=== PATIENT | female | born 1980 | race Caucasian/White ===

== ENCOUNTER 2016-10-24 11:23 | Outpatient (CLI) | payer MEDICARE, MEDICAID | END 2016-10-24 11:24 | disposition home or self-care (01) | DX: Z79.899 Other long term (current) drug therapy (principal) ==

== ENCOUNTER 2016-11-08 07:55 | Emergency (ER) | payer MEDICARE, MEDICAID | END 2016-11-08 09:05 | disposition home or self-care (01) | DX: R53.81 Other malaise (principal); R53.83 Other fatigue ==

== ENCOUNTER 2017-11-23 08:00 | Outpatient (CLI) | payer MEDICARE, MEDICAID ==
[2017-11-23 12:39] LABS: BASOPHILS % (AUTO) 0.9 %; HGB - HEMOGLOBIN 12.5 g/dL (12.0-16.0); LYMPHOCYTES # (AUTO) 1.7 10^3/uL (1.5-3.5); LYMPHOCYTES % (AUTO) 57.7 %; MEAN CORPUSCULAR HEMOGLOBIN 31.5 pg (27.0-31.0); MEAN PLATELET VOLUME 8.6 fL (7.9-10.8); MONOCYTES # (AUTO) 0.2 10^3/uL (0.0-1.0); MONOCYTES % (AUTO) 6.6 %; NEUTROPHILS % (AUTO) 34.8 %; PLT - PLATELET COUNT 167 10^3/uL (130-450); RED BLOOD COUNT 3.97 10^6/uL (4.20-5.40); RED CELL DISTRIBUTION WIDTH 12.5 % (12.0-15.0); WHITE BLOOD COUNT 2.9 x10^3/uL (4.8-10.8)
[2017-11-23 13:02] LABS: ALBUMIN 4.2 g/dL (3.2-5.5); ALBUMIN/GLOBULIN RATIO 1.7 (1.0-2.2); ALKALINE PHOSPHATASE 40 IU/L (42-121); ALT ALANINE AMINOTRANSFERASE 16 IU/L (10-60); AST ASPARTATE AMINOTRANSFERASE 22 IU/L (10-42); BILIRUBIN,TOTAL 0.6 mg/dL (0.2-1.0); BUN - BLOOD UREA NITROGEN 8 mg/dL (6-20); CARBON DIOXIDE - CO2 25 mmol/L (21-32); CHLORIDE 105 mmol/L (101-111); CHOL/HDL RATIO 2.4 (<4.4); CHOLESTEROL 172 mg/dL; CREATININE 0.5 mg/dL (0.4-1.0); GFR - MDRD 140 (>89); GLUCOSE 82 mg/dL (70-100); HDL CHOLESTEROL 72 mg/dL; SODIUM 136 mmol/L (135-145); TOTAL PROTEIN 6.7 g/dL (6.7-8.2)
[2017-11-23 13:08] LABS: THYROID STIMULATING HORMONE < 0.08 uIU/mL (0.34-5.60)
[2017-11-23 13:22] LABS: LDL CHOLESTEROL,DIRECT 84 mg/dL; LDLD/HDL RATIO 1.2 (<4.4)
[2017-11-23 14:07] LABS: FREE T4 (FREE THYROXINE) 0.95 ng/dL (0.58-1.64)
[2017-11-23 14:38] LABS: DIFFERENTIAL COMMENT MANUAL=AUTO DIFF; PLATELET ESTIMATE, MANUAL NORMAL (130-450,000) (NORMAL); PLATELET MORPHOLOGY NORMAL APPEARANCE (NORMAL); RBC MORPHOLOGY (MULTIPLE) NORMAL APPEARANCE (NORMAL)
== END 2017-11-23 08:01 | disposition home or self-care (01) ==
LOC: LAB.N 08:00
PROVIDERS: ATTEND Family Medicine
DX: R63.5 Abnormal weight gain (principal); F41.9 Anxiety disorder, unspecified; Z79.899 Other long term (current) drug therapy
CPT/HCPCS: 36415; 80053; 80061; 83721; 84439; 84443; 85025

== ENCOUNTER 2018-01-01 13:09 | Outpatient (CLI) | payer MEDICARE, MEDICAID ==
[2018-01-01 19:17] LABS: BASOPHILS % (AUTO) 0.4 %; LYMPHOCYTES # (AUTO) 2.2 10^3/uL (1.5-3.5); LYMPHOCYTES % (AUTO) 47.5 %; MEAN CORPUSCULAR HEMOGLOBIN 30.4 pg (27.0-31.0); MEAN CORPUSCULAR HGB CONC 33.6 g/dL (32.0-36.0); MEAN CORPUSCULAR VOLUME 90.4 fL (81.0-99.0); MEAN PLATELET VOLUME 8.6 fL (7.9-10.8); MONOCYTES # (AUTO) 0.3 10^3/uL (0.0-1.0); MONOCYTES % (AUTO) 6.4 %; NEUTROPHILS # (AUTO) 2.1 10^3/uL (1.5-6.6); NEUTROPHILS % (AUTO) 45.7 %; PLT - PLATELET COUNT 204 10^3/uL (130-450); RED BLOOD COUNT 3.94 10^6/uL (4.20-5.40); RED CELL DISTRIBUTION WIDTH 12.7 % (12.0-15.0); WHITE BLOOD COUNT 4.6 x10^3/uL (4.8-10.8)
[2018-01-01 19:44] LABS: THYROID STIMULATING HORMONE < 0.08 uIU/mL (0.34-5.60)
[2018-01-01 19:46] LABS: FREE T4 (FREE THYROXINE) 0.86 ng/dL (0.58-1.64)
== END 2018-01-01 13:10 ==
LOC: LAB.N 13:09
PROVIDERS: ATTEND Family Medicine
DX: D72.819 Decreased white blood cell count, unspecified (principal); R94.6 Abnormal results of thyroid function studies
CPT/HCPCS: 36415; 84439; 84443; 84481; 85025; 86800

== ENCOUNTER 2018-04-08 12:03 | Emergency (ER) | payer MEDICAID, MEDICARE ==
[2018-04-08 13:15] LABS: BASOPHILS % (AUTO) 0.3 %; HGB - HEMOGLOBIN 12.2 g/dL (12.0-16.0); LYMPHOCYTES # (AUTO) 1.7 10^3/uL (1.5-3.5); MEAN CORPUSCULAR HEMOGLOBIN 31.2 pg (27.0-31.0); MEAN CORPUSCULAR HGB CONC 34.9 g/dL (32.0-36.0); MEAN CORPUSCULAR VOLUME 89.7 fL (81.0-99.0); MEAN PLATELET VOLUME 7.5 fL (7.9-10.8); MONOCYTES # (AUTO) 0.2 10^3/uL (0.0-1.0); MONOCYTES % (AUTO) 7.2 %; NEUTROPHILS # (AUTO) 1.3 10^3/uL (1.5-6.6); NEUTROPHILS % (AUTO) 40.5 %; PLT - PLATELET COUNT 181 10^3/uL (130-450); RED BLOOD COUNT 3.91 10^6/uL (4.20-5.40); RED CELL DISTRIBUTION WIDTH 12.5 % (12.0-15.0); WHITE BLOOD COUNT 3.2 x10^3/uL (4.8-10.8)
[2018-04-08 13:38] LABS: ALBUMIN 3.9 g/dL (3.2-5.5); ALBUMIN/GLOBULIN RATIO 1.5 (1.0-2.2); ALKALINE PHOSPHATASE 43 IU/L (42-121); ALT ALANINE AMINOTRANSFERASE 15 IU/L (10-60); AST ASPARTATE AMINOTRANSFERASE 22 IU/L (10-42); BILIRUBIN,TOTAL 0.5 mg/dL (0.2-1.0); BUN - BLOOD UREA NITROGEN 6 mg/dL (6-20); CARBON DIOXIDE - CO2 28 mmol/L (21-32); CHLORIDE 106 mmol/L (101-111); CREATININE 0.6 mg/dL (0.4-1.0); GFR - MDRD 113 (>89); GLUCOSE 109 mg/dL (70-100); LIPASE 39 U/L (22-51); SALICYLATE < 6.0 mg/dL; SODIUM 138 mmol/L (135-145); TOTAL PROTEIN 6.5 g/dL (6.7-8.2)
[2018-04-08 13:42] LABS: MUDS CUTOFF CONCENTRATIONS CUTOFF CONC BELOW:
[2018-04-08 13:44] LABS: ACETAMINOPHEN < 10 ug/mL (10-30)
[2018-04-08 13:53] LABS: HCG UR QUAL NEGATIVE
[2018-04-08 13:58] LABS: AMPHETAMINE SCREEN,URINE NEGATIVE (NEGATIVE); BENZODIAZEPINES SCREEN, URINE NEGATIVE (NEGATIVE); COCAINE SCREEN URINE NEGATIVE (NEGATIVE); METHADONE SCREEN, URINE NEGATIVE (NEGATIVE); METHAMPHETAMINES SCREEN, URINE NEGATIVE (NEGATIVE); OPIATE SCREEN, URINE NEGATIVE (NEGATIVE); OXYCODONE SCREEN, URINE NEGATIVE (NEGATIVE); PROPOXYPHENE SCREEN, URINE NEGATIVE (NEGATIVE); TRICYCLIC ANTIDEPRESSANT,URINE NEGATIVE (NEGATIVE)
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
[2018-04-08 16:20] VITALS: BP 145/97
== END 2018-04-08 18:53 | disposition home or self-care (01) ==
LOC: ED 12:03
DX: F32.3 Major depressive disorder, single episode, severe with psychotic features (principal); R45.1 Restlessness and agitation; F43.10 Post-traumatic stress disorder, unspecified; R03.0 Elevated blood-pressure reading, without diagnosis of hypertension
CPT/HCPCS: 36415; 80053; 80306; 80307; 80320; 80329; 81025; 83690; 85025; 99283; 99284

== ENCOUNTER 2018-05-02 10:15 | Outpatient (CLI) | payer MEDICARE ==
[2018-05-02 17:00] LABS: MUDS CUTOFF CONCENTRATIONS CUTOFF CONC BELOW:
[2018-05-02 17:04] LABS: AMPHETAMINE SCREEN,URINE NEGATIVE (NEGATIVE); BENZODIAZEPINES SCREEN, URINE NEGATIVE (NEGATIVE); COCAINE SCREEN URINE NEGATIVE (NEGATIVE); METHADONE SCREEN, URINE NEGATIVE (NEGATIVE); METHAMPHETAMINES SCREEN, URINE NEGATIVE (NEGATIVE); OPIATE SCREEN, URINE NEGATIVE (NEGATIVE); OXYCODONE SCREEN, URINE NEGATIVE (NEGATIVE); PROPOXYPHENE SCREEN, URINE NEGATIVE (NEGATIVE); TRICYCLIC ANTIDEPRESSANT,URINE NEGATIVE (NEGATIVE)
== END 2018-05-02 10:16 | disposition home or self-care (01) ==
LOC: LAB.R 10:15
PROVIDERS: ATTEND Family Medicine
DX: R45.4 Irritability and anger (principal); R41.82 Altered mental status, unspecified
CPT/HCPCS: 80306

== ENCOUNTER 2019-03-18 12:47 | Outpatient (CLI) | payer MEDICARE | END 2019-03-18 12:48 | disposition home or self-care (01) | LOC: NS 12:47 | PROVIDERS: ATTEND Family Medicine | DX: Z71.3 Dietary counseling and surveillance (principal); R63.4 Abnormal weight loss; R63.5 Abnormal weight gain | CPT/HCPCS: 97802 ==

== ENCOUNTER 2019-04-17 15:01 | Outpatient (CLI) | payer MEDICARE ==
[2019-04-17 20:54] LABS: FREE T4 (FREE THYROXINE) 0.98 ng/dL (0.58-1.64)
== END 2019-04-17 23:59 | disposition home or self-care (01) ==
LOC: LAB.N 15:01
PROVIDERS: ATTEND Nurse Practitioner Gerontology
DX: R94.6 Abnormal results of thyroid function studies (principal)
CPT/HCPCS: 36415; 84439; 84443; 84481

== ENCOUNTER 2019-05-07 09:50 | Outpatient (CLI) | payer MEDICARE | END 2019-05-07 09:51 | disposition EMS.NT | LOC: EMS 09:50 | PROVIDERS: ATTEND Surgery | DX: Z03.89 Encounter for observation for other suspected diseases and conditions ruled out (principal) ==

== ENCOUNTER 2020-01-12 17:12 | Outpatient (CLI) | payer MEDICARE | END 2020-01-12 17:13 | disposition home or self-care (01) | LOC: COV 17:12 | PROVIDERS: ATTEND Family Medicine | DX: R50.9 Fever, unspecified (principal); R53.83 Other fatigue; J02.9 Acute pharyngitis, unspecified; R19.7 Diarrhea, unspecified | CPT/HCPCS: 81599 ==

== ENCOUNTER 2021-04-09 16:17 | Emergency (ER) | payer MEDICARE ==
[2021-04-09 16:45] VITALS: BP 112/76
--- NOTE | 2021-04-09 17:17 | ED Physician Documentation ---
History of Present Illness - Stated complaint Stated Complaint: LEG PX - Chief complaint Chief Complaint: Ext Problem - Additonal information Additional information: 40-year-old female presents emergency department for evaluation of acute right knee pain. She was unsure what she was doing but felt a pull in the knee. She is free of pain right now and has occasionally had this intermittently over the last few weeks. There is no swelling fevers or ecchymosis. No falls or trauma. She is interested in a referral to physical therapy. She is scheduled to establish with a primary care doctor on 26 May. Review of Systems Constitutional: reports: Reviewed and negative Ears: reports: Reviewed and negative Nose: reports: Reviewed and negative Cardiac: reports: Reviewed and negative Respiratory: reports: Reviewed and negative Musculoskeletal: reports: Joint pain (Right knee) PD PAST MEDICAL HISTORY - Past Medical History Cardiovascular: None Respiratory: None Endocrine/Autoimmune: None GI: None : None HEENT: None Psych: None Musculoskeletal: None Derm: None - Past Surgical History Past Surgical History: No Ortho: Other - Present Medications Home Medications: Ambulatory Orders Medication Instructions Recorded Confirmed Levothyroxine [Synthroid] 25 mcg PO DAILY 04/09/21 04/09/21 Ziprasidone [Geodon] 20 mg PO DAILY PM 04/09/21 04/09/21 - Allergies Allergies/Adverse Reactions: Allergies Allergy/AdvReac Type Severity Reaction Status Date / Time aspirin Allergy Mild Rash Verified 04/09/21 16:44 acetaminophen [From Tylenol] Allergy Rash Verified 04/09/21 16:44 - Social History Does the pt smoke?: No Smoking Status: Never smoker Does the pt drink ETOH?: No - Immunizations Immunizations are current?: No Immunizations: TDAP >10years/unknown PD ED PE EXPANDED - General General: Alert, No acute distress - Extremities Extremities: Right knee (Normal flexion and extension. Normal gait. No laxity with stress testing. No swelling ecchymosis or erythema.) Results - Vitals Vitals: Vital Signs - 24 hr 04/09/21 16:41 Temperature 36.7 C Heart Rate 70 Respiratory 16 Rate Blood Pressure 112/76 O2 Saturation 100 Oxygen O2 Source [With Activity] Room air O2 Source [Without Activity] Room air O2 Source Room air PD MEDICAL DECISION MAKING - ED course Complexity details: d/w patient ED course: Well-appearing 40-year-old female who presents emergency department with intermittent right knee pain free of pain right now and has an entirely unremarkable exam. She would like physical therapy for the intermittent knee pain. I encouraged her to follow-up with her primary care doctor to obtain that referral. Departure - Departure Disposition: Home, Self Care Clinical Impression: Right knee pain Qualifiers: Chronicity: acute Qualified Code(s): M25.561 - Pain in right knee Condition: Stable Record reviewed to determine appropriate education?: Yes Instructions: Strains Sprains Tx Comments: It is possible that the pain in your knee could have been a mild sprain that seems to have resolved. Pay attention to your knee if it becomes more painful red or swollen discussed with your primary care doctor if you would benefit from referral to physical therapy.
== END 2021-04-09 17:27 | disposition home or self-care (01) ==
LOC: ED 16:17
DX: M25.561 Pain in right knee (principal)
CPT/HCPCS: 99281; 99283

== ENCOUNTER 2021-05-26 15:47 | Outpatient (CLI) | payer MEDICARE ==
--- NOTE | 2021-05-26 17:11 | XRAY Report ---
PROCEDURE: Knee 4 View RT INDICATIONS: RIGHT KNEE PAIN TECHNIQUE: 4 views of the right knee(s) were acquired. COMPARISON: None. FINDINGS: Bones: No fractures or dislocations. No suspicious bony lesions. Trace narrowing of the medial fem oral tibial joint Soft tissues: Trace joint effusion. No suspicious soft tissue calcifications. IMPRESSION: Trace narrowing of the medial femoral tibial joint and trace joint effusion. Reviewed by: ED Madsen on 05/26/2021 5:09 PM PDT Approved by: Elpidio Head MD on 05/26/2021 5:09 PM PDT Station ID: [id number]
== END 2021-05-26 15:48 | disposition home or self-care (01) ==
LOC: DI.N 15:47
PROVIDERS: ATTEND Family Medicine
DX: M25.561 Pain in right knee (principal); M25.461 Effusion, right knee

== ENCOUNTER 2021-11-07 17:48 | Outpatient (CLI) | payer BC, MEDICARE | END 2021-11-07 23:59 | disposition home or self-care (01) | LOC: LAB.N 17:48 | PROVIDERS: ATTEND Physician Assistant | DX: Z20.822 Contact with and (suspected) exposure to COVID-19 (principal) ==

== ENCOUNTER 2022-02-03 08:00 | Outpatient (CLI) | payer BC | END 2022-02-03 23:59 | disposition home or self-care (01) | LOC: LAB.N 08:00 | PROVIDERS: ATTEND Physician Assistant Medical | DX: N30.00 Acute cystitis without hematuria (principal) | CPT/HCPCS: 87086 ==

== ENCOUNTER 2022-03-25 08:00 | Outpatient (CLI) | payer BC ==
[2022-03-25 18:58] LABS: BASOPHILS % (AUTO) 1.1 %; EOSINOPHILS % (AUTO) 0.5 %; HCT - HEMATOCRIT 34.8 % (37.0-47.0); HGB - HEMOGLOBIN 11.6 g/dL (12.0-16.0); LYMPHOCYTES # (AUTO) 1.7 10^3/uL (1.5-3.5); MEAN CORPUSCULAR HEMOGLOBIN 31.4 pg (27.0-31.0); MEAN CORPUSCULAR HGB CONC 33.3 g/dL (32.0-36.0); MEAN CORPUSCULAR VOLUME 94.1 fL (81.0-99.0); MEAN PLATELET VOLUME 9.7 fL (7.9-10.8); MONOCYTES # (AUTO) 0.2 10^3/uL (0.0-1.0); MONOCYTES % (AUTO) 6.3 %; NEUTROPHILS # (AUTO) 1.7 10^3/uL (1.5-6.6); NEUTROPHILS % (AUTO) 46.1 %; PLT - PLATELET COUNT 221 10^3/uL (130-450); RED CELL DISTRIBUTION WIDTH 12.6 % (12.0-15.0); WHITE BLOOD COUNT 3.7 x10^3/uL (4.8-10.8)
[2022-03-25 19:10] LABS: ALBUMIN 4.5 g/dL (3.2-5.5); ALBUMIN/GLOBULIN RATIO 2.1 (1.0-2.2); BILIRUBIN,TOTAL 0.5 mg/dL (0.2-1.0); CALCIUM 9.4 mg/dL (8.5-10.3); CREATININE 0.5 mg/dL (0.4-1.0); POTASSIUM 3.6 mmol/L (3.5-5.0); TOTAL PROTEIN 6.6 g/dL (6.7-8.2)
[2022-03-25 19:24] LABS: THYROID STIMULATING HORMONE 0.93 uIU/mL (0.34-5.60)
== END 2022-03-25 23:59 | disposition home or self-care (01) ==
LOC: LAB.N 08:00
PROVIDERS: ATTEND Nurse Practitioner
DX: R53.83 Other fatigue (principal)
CPT/HCPCS: 36415; 80053; 84443; 85025

== ENCOUNTER 2022-08-24 08:00 | Outpatient (CLI) | payer BC ==
[2022-08-24 17:46] LABS: BASOPHILS % (AUTO) 0.8 %; EOSINOPHILS % (AUTO) 0.6 %; HCT - HEMATOCRIT 39.5 % (37.0-47.0); HGB - HEMOGLOBIN 12.5 g/dL (12.0-16.0); LYMPHOCYTES # (AUTO) 1.4 10^3/uL (1.5-3.5); LYMPHOCYTES % (AUTO) 30.2 %; MEAN CORPUSCULAR HGB CONC 31.6 g/dL (32.0-36.0); MEAN PLATELET VOLUME 9.8 fL (7.9-10.8); MONOCYTES # (AUTO) 0.4 10^3/uL (0.0-1.0); MONOCYTES % (AUTO) 8.2 %; NEUTROPHILS # (AUTO) 2.9 10^3/uL (1.5-6.6); NEUTROPHILS % (AUTO) 60.2 %; PLT - PLATELET COUNT 191 10^3/uL (130-450); RED BLOOD COUNT 4.03 10^6/uL (4.20-5.40); RED CELL DISTRIBUTION WIDTH 12.3 % (12.0-15.0); WHITE BLOOD COUNT 4.7 x10^3/uL (4.8-10.8)
[2022-08-24 18:22] LABS: ALBUMIN 4.1 g/dL (3.2-5.5); ALBUMIN/GLOBULIN RATIO 1.5 (1.0-2.2); BILIRUBIN,TOTAL 0.7 mg/dL (0.2-1.0); CALCIUM 9.3 mg/dL (8.5-10.3); CREATININE 0.5 mg/dL (0.4-1.0); POTASSIUM 3.8 mmol/L (3.5-5.0); TOTAL PROTEIN 6.8 g/dL (6.7-8.2)
[2022-08-24 18:29] LABS: THYROID STIMULATING HORMONE 1.65 uIU/mL (0.34-5.60)
[2022-08-24 18:31] LABS: FREE T4 (FREE THYROXINE) 0.74 ng/dL (0.58-1.64)
[2022-08-24 18:41] LABS: FOLATE 10.47 ng/mL (5.90 - >24.8)
== END 2022-08-24 23:59 | disposition home or self-care (01) ==
LOC: LAB.N 08:00
PROVIDERS: ATTEND Family Medicine
DX: D64.9 Anemia, unspecified (principal); R94.6 Abnormal results of thyroid function studies; R63.0 Anorexia
CPT/HCPCS: 36415; 80053; 82607; 82746; 83540; 84134; 84439; 84443; 84466; 85025

== ENCOUNTER 2022-09-23 08:00 | Outpatient (CLI) | payer BC ==
[2022-09-23 18:34] LABS: BASOPHILS % (AUTO) 1.2 %; EOSINOPHILS % (AUTO) 0.6 %; HCT - HEMATOCRIT 34.8 % (37.0-47.0); HGB - HEMOGLOBIN 11.5 g/dL (12.0-16.0); LYMPHOCYTES # (AUTO) 1.5 10^3/uL (1.5-3.5); MEAN CORPUSCULAR HEMOGLOBIN 31.5 pg (27.0-31.0); MEAN CORPUSCULAR VOLUME 95.3 fL (81.0-99.0); MEAN PLATELET VOLUME 9.9 fL (7.9-10.8); MONOCYTES # (AUTO) 0.3 10^3/uL (0.0-1.0); MONOCYTES % (AUTO) 7.6 %; NEUTROPHILS # (AUTO) 1.6 10^3/uL (1.5-6.6); NEUTROPHILS % (AUTO) 45.3 %; PLT - PLATELET COUNT 188 10^3/uL (130-450); RED BLOOD COUNT 3.65 10^6/uL (4.20-5.40); RED CELL DISTRIBUTION WIDTH 12.6 % (12.0-15.0); WHITE BLOOD COUNT 3.4 x10^3/uL (4.8-10.8)
[2022-09-23 18:59] LABS: CALCIUM 9.1 mg/dL (8.5-10.3); CREATININE 0.5 mg/dL (0.4-1.0); POTASSIUM 3.6 mmol/L (3.5-5.0)
[2022-09-23 19:11] LABS: FERRITIN 7.9 ng/mL (11.0-306.8)
[2022-09-23 19:16] LABS: FOLATE 11.51 ng/mL (5.90 - >24.8)
== END 2022-09-23 23:59 | disposition home or self-care (01) ==
LOC: LAB.N 08:00
PROVIDERS: ATTEND Nurse Practitioner
DX: D64.9 Anemia, unspecified (principal)
CPT/HCPCS: 36415; 80048; 82728; 82746; 83540; 84466; 85025

== ENCOUNTER 2022-11-15 08:00 | Outpatient (CLI) | payer BC ==
[2022-11-15 21:24] LABS: BASOPHILS # (AUTO) 0.1 10^3/uL (0.0-0.1); BASOPHILS % (AUTO) 1.2 %; EOSINOPHILS % (AUTO) 0.7 %; HCT - HEMATOCRIT 34.9 % (37.0-47.0); HGB - HEMOGLOBIN 11.7 g/dL (12.0-16.0); LYMPHOCYTES % (AUTO) 46.1 %; MEAN CORPUSCULAR HEMOGLOBIN 31.5 pg (27.0-31.0); MEAN CORPUSCULAR HGB CONC 33.5 g/dL (32.0-36.0); MEAN CORPUSCULAR VOLUME 94.1 fL (81.0-99.0); MEAN PLATELET VOLUME 9.8 fL (7.9-10.8); MONOCYTES # (AUTO) 0.3 10^3/uL (0.0-1.0); MONOCYTES % (AUTO) 6.9 %; NEUTROPHILS # (AUTO) 1.9 10^3/uL (1.5-6.6); NEUTROPHILS % (AUTO) 45.1 %; PLT - PLATELET COUNT 207 10^3/uL (130-450); RED BLOOD COUNT 3.71 10^6/uL (4.20-5.40); RED CELL DISTRIBUTION WIDTH 12.5 % (12.0-15.0); WHITE BLOOD COUNT 4.2 x10^3/uL (4.8-10.8)
[2022-11-15 21:45] LABS: FERRITIN 12.3 ng/mL (11.0-306.8)
[2022-11-15 21:49] LABS: % IRON SATURATION 12 % (20-50); FOLATE 12.33 ng/mL (5.90 - >24.8); IRON 41 ug/dL (28-170); TOTAL IRON BINDING CAPACITY 343 ug/dL (250-450); TRANSFERRIN 245 mg/dL (192-382)
== END 2022-11-15 23:59 | disposition home or self-care (01) ==
LOC: LAB.N 08:00
PROVIDERS: ATTEND Registered Nurse
DX: D64.9 Anemia, unspecified (principal)
CPT/HCPCS: 36415; 82607; 82728; 82746; 83540; 84466; 85025

== ENCOUNTER 2022-12-26 16:30 | Outpatient (CLI) | payer BC ==
[2022-12-26 17:46] LABS: BASOPHILS # (AUTO) 0.1 10^3/uL (0.0-0.1); BASOPHILS % (AUTO) 1.1 %; EOSINOPHILS % (AUTO) 0.4 %; HCT - HEMATOCRIT 34.8 % (37.0-47.0); HGB - HEMOGLOBIN 11.8 g/dL (12.0-16.0); LYMPHOCYTES # (AUTO) 2.2 10^3/uL (1.5-3.5); LYMPHOCYTES % (AUTO) 46.2 %; MEAN CORPUSCULAR HEMOGLOBIN 31.7 pg (27.0-31.0); MEAN CORPUSCULAR HGB CONC 33.9 g/dL (32.0-36.0); MEAN CORPUSCULAR VOLUME 93.5 fL (81.0-99.0); MEAN PLATELET VOLUME 9.5 fL (7.9-10.8); MONOCYTES # (AUTO) 0.3 10^3/uL (0.0-1.0); MONOCYTES % (AUTO) 6.5 %; NEUTROPHILS # (AUTO) 2.2 10^3/uL (1.5-6.6); NEUTROPHILS % (AUTO) 45.6 %; PLT - PLATELET COUNT 209 10^3/uL (130-450); RED BLOOD COUNT 3.72 10^6/uL (4.20-5.40); RED CELL DISTRIBUTION WIDTH 12.1 % (12.0-15.0); WHITE BLOOD COUNT 4.8 x10^3/uL (4.8-10.8)
== END 2022-12-26 16:31 | disposition home or self-care (01) ==
LOC: LAB.N 16:30
PROVIDERS: ATTEND Physician Assistant Medical
DX: D64.9 Anemia, unspecified (principal)
CPT/HCPCS: 36415; 85025

== ENCOUNTER 2023-01-26 16:30 | Outpatient (CLI) | payer BC ==
[2023-01-26 20:44] LABS: BASOPHILS % (AUTO) 1.1 %; EOSINOPHILS % (AUTO) 0.3 %; HCT - HEMATOCRIT 36.8 % (37.0-47.0); HGB - HEMOGLOBIN 12.4 g/dL (12.0-16.0); LYMPHOCYTES # (AUTO) 1.7 10^3/uL (1.5-3.5); MEAN CORPUSCULAR HEMOGLOBIN 31.4 pg (27.0-31.0); MEAN CORPUSCULAR HGB CONC 33.7 g/dL (32.0-36.0); MEAN CORPUSCULAR VOLUME 93.2 fL (81.0-99.0); MEAN PLATELET VOLUME 9.5 fL (7.9-10.8); MONOCYTES # (AUTO) 0.4 10^3/uL (0.0-1.0); MONOCYTES % (AUTO) 9.9 %; NEUTROPHILS # (AUTO) 1.4 10^3/uL (1.5-6.6); NEUTROPHILS % (AUTO) 40.4 %; PLT - PLATELET COUNT 236 10^3/uL (130-450); RED BLOOD COUNT 3.95 10^6/uL (4.20-5.40); RED CELL DISTRIBUTION WIDTH 12.1 % (12.0-15.0); WHITE BLOOD COUNT 3.5 x10^3/uL (4.8-10.8)
[2023-01-26 21:01] LABS: ALBUMIN 4.4 g/dL (3.2-5.5); ALBUMIN/GLOBULIN RATIO 1.6 (1.0-2.2); BILIRUBIN,TOTAL 0.5 mg/dL (0.2-1.0); CALCIUM 9.3 mg/dL (8.5-10.3); CREATININE 0.5 mg/dL (0.4-1.0); POTASSIUM 3.7 mmol/L (3.5-5.0); TOTAL PROTEIN 7.1 g/dL (6.7-8.2)
[2023-01-26 21:18] LABS: THYROID STIMULATING HORMONE 0.91 uIU/mL (0.34-5.60)
[2023-01-26 21:23] LABS: % IRON SATURATION 11 % (20-50); IRON 42 ug/dL (28-170); TOTAL IRON BINDING CAPACITY 370 ug/dL (250-450); TRANSFERRIN 264 mg/dL (192-382)
[2023-01-26 21:25] LABS: FERRITIN 12.2 ng/mL (11.0-306.8)
== END 2023-01-26 16:45 | disposition home or self-care (01) ==
LOC: LAB.N 16:30
PROVIDERS: ATTEND Family Medicine
DX: D64.9 Anemia, unspecified (principal); R63.0 Anorexia; R53.83 Other fatigue; D72.819 Decreased white blood cell count, unspecified; R94.6 Abnormal results of thyroid function studies
CPT/HCPCS: 36415; 80053; 82607; 82728; 83540; 84443; 84466; 85025

== ENCOUNTER 2023-02-01 09:44 | Emergency (ER) | payer BC ==
[2023-02-01 09:54] VITALS: BP 125/90
--- NOTE | 2023-02-01 11:24 | ED Physician Documentation ---
History of Present Illness - Stated complaint Stated Complaint: ALLERGIC REACTION TO MEDICATION - Chief complaint Chief Complaint: General - History obtained from History obtained from: Patient - Additonal information Additional information: The patient comes to the emergency department chief complaint of feeling tired today. She did not feel tired yesterday, she states, and slept well last night. She states "I feel like I came down with a cold". However, the patient states she has no rhinorrhea, cough, sore throat, shortness of breath, fever, or any other symptoms besides feeling tired. She has not been nauseated or vomiting. No diarrhea. No dysuria. The patient states she drinks lots of water every day. The patient denies any other complaints at this time. She states she would like to know why she is tired. PD PAST MEDICAL HISTORY - Past Medical History Cardiovascular: None Respiratory: None Endocrine/Autoimmune: None GI: None : None HEENT: None Psych: None Musculoskeletal: None Derm: None - Past Surgical History Past Surgical History: No Ortho: Other - Present Medications Home Medications: Ambulatory Orders Medication Instructions Recorded Confirmed Levothyroxine [Synthroid] 25 mcg PO DAILY 04/09/21 04/09/21 Ziprasidone [Geodon] 20 mg PO DAILY PM 04/09/21 04/09/21 - Allergies Allergies/Adverse Reactions: Allergies Allergy/AdvReac Type Severity Reaction Status Date / Time aspirin Allergy Mild Rash Verified 02/01/23 09:51 acetaminophen [From Tylenol] Allergy Rash Verified 02/01/23 09:51 - Social History Does the pt smoke?: No Smoking Status: Never smoker Does the pt drink ETOH?: No Does the pt have substance abuse?: No - Immunizations Immunizations are current?: No Immunizations: TDAP >10years/unknown PD ED PE NORMAL - Vitals Vital signs reviewed: Yes - General General: Alert and oriented X 3, No acute distress, Well developed/nourished - HEENT HEENT: Atraumatic, PERRL, EOMI, Moist mucous membranes, Pharynx benign - Neck Neck: Supple, no meningeal sign - Cardiac Cardiac: RRR, No murmur - Respiratory Respiratory: No respiratory distress, Clear bilaterally - Abdomen Abdomen: Soft, Non tender, Non distended - Derm Derm: Normal color, Warm and dry, No rash - Extremities Extremities: No deformity - Neuro Neuro: Other (Grossly intact) - Psych Psych: Normal mood, Normal affect Results - Vitals Vitals: Vital Signs - 24 hr 02/01/23 09:47 Temperature 36.4 C L Heart Rate 67 Respiratory 16 Rate Blood Pressure 125/90 H O2 Saturation 100 Oxygen O2 Source [With Activity] Room air O2 Source [Without Activity] Room air O2 Source Room air PD Medical Decision Making - ED course Complexity details: considered differential, d/w patient ED course: I discussed with the patient that her symptoms are very recent in onset and very vague. The patient has completely normal vital signs and a normal physical exam. She has no other symptoms besides feeling tired and even that has only been since this morning. I do not know why she is tired and I have explained this to her. There are myriad possible explanations and nothing at this point is indicating a need for emergent work-up. I discussed with the patient that if she feels tired day after day with no other symptoms, she will need to establish with primary care and have basic blood work and a physical done. However, right now there is no emergent indication for this and the patient is stable for discharge home. Departure - Departure Disposition: 01 Home, Self Care Clinical Impression: Fatigue Qualifiers: Fatigue type: unspecified Qualified Code(s): R53.83 - Other fatigue Condition: Stable Instructions: Fatigue Manage Follow-Up: Maricruz Spaulding ARNP [Credentialed Staff Provider] - Comments: Your symptoms today include tiredness, but no other symptoms that you have been able to articulate. This is a very vague and nonspecific symptoms that could be caused by many many potential things. With normal vital signs, a normal physical exam, and no other symptoms, there is no indication for emergent testing in the emergency department. Most likely, your symptoms will blow over on their own. You may have picked up on the many viruses that are going around and you may develop some more specific symptoms over the next couple of days. It is also possible that you are just having an off day and that is why you feel tired. If you feel tiredness every day for weeks and you have no other specific symptoms, you will need to talk to your primary doctor about getting blood work done. However, there is no emergent indication for this today.
== END 2023-02-01 11:29 | disposition home or self-care (01) ==
LOC: ED 09:44
DX: R53.83 Other fatigue (principal)
CPT/HCPCS: 99281; 99282

== ENCOUNTER 2023-02-02 09:32 | Emergency (ER) | payer BC ==
[2023-02-02 09:44] VITALS: BP 127/79
--- NOTE | 2023-02-02 09:49 | ED Physician Documentation ---
PD HPI NVD - Stated complaint Stated Complaint: LIGHTHEADED/DIZZY - Chief complaint Chief Complaint: General - History obtained from History obtained from: Patient - History of Present Illness Timing - onset: How many days ago (She has been having some upper abdominal discomfort and more with eating. She had been prescribed famotidine but states it made her feel nauseated. She was told to use antacids instead. She is concerned about reactive conditions with her medications.) Timing - duration: Days Timing - details: Gradual onset, Waxing and waning Associated symptoms: Abdominal pain (upper abdomen), Dizzy (she states she feels lightheaded. No vertigo.). No: Chest pain Contributing factors: No: Sick contact, Bad food, Recent antibiotics, Alcohol use Improved by: No: Eating Worsened by: Eating Similar symptoms before: Diagnosis (presumed gastritis) Recently seen: Clinic, Emergency Dept Review of Systems Nose: denies: Rhinorrhea / runny nose, Congestion Throat: denies: Sore throat Respiratory: denies: Cough GI: reports: Abdominal Pain (intermittent upper cramping pains.), Nausea. denies: Vomiting, Diarrhea (loose stools without melena nor blood.) PD PAST MEDICAL HISTORY - Past Medical History Cardiovascular: None Respiratory: None Endocrine/Autoimmune: None GI: None : None HEENT: None Psych: Schizophrenia Musculoskeletal: None Derm: None - Past Surgical History Past Surgical History: No Ortho: Other - Present Medications Home Medications: Ambulatory Orders Medication Instructions Recorded Confirmed Levothyroxine [Synthroid] 25 mcg PO DAILY 04/09/21 04/09/21 Ziprasidone [Geodon] 20 mg PO DAILY PM 04/09/21 04/09/21 Pantoprazole Sodium 20 mg PO DAILY #30 tab 02/02/23 - Allergies Allergies/Adverse Reactions: Allergies Allergy/AdvReac Type Severity Reaction Status Date / Time aspirin Allergy Mild Rash Verified 02/02/23 09:42 acetaminophen [From Tylenol] Allergy Rash Verified 02/02/23 09:42 famotidine Allergy Edema Verified 02/02/23 09:42 - Social History Does the pt smoke?: No Smoking Status: Never smoker Does the pt drink ETOH?: No Does the pt have substance abuse?: No - Immunizations Immunizations are current?: No Immunizations: TDAP >10years/unknown PD ED PE NORMAL - Vitals Vital signs reviewed: Yes - General General: Alert and oriented X 3, No acute distress, Well developed/nourished - Abdomen Abdomen: Normal bowel sounds, Soft, Non tender, Non distended, No organomegaly - Derm Derm: Normal color, Warm and dry - Neuro Neuro: Alert and oriented X 3, No motor deficit, Normal speech - Psych Psych: No: Normal affect (flat) Results - Vitals Vitals: Vital Signs - 24 hr 02/02/23 09:38 Temperature 37.1 C Heart Rate 62 Respiratory 16 Rate Blood Pressure 127/79 O2 Saturation 100 Oxygen O2 Source [With Activity] Room air O2 Source [Without Activity] Room air O2 Source Room air PD Medical Decision Making - ED course Complexity details: considered differential (The patient states she is having some upper abdominal discomfort and nausea. She had had some loose stool but no melena. She had been seen for this and told to use antacids but she is concerned about interaction with her other medicines.), d/w patient, other (I did a medication interaction check on up-to-date which said not to use calcium or magnesium antacids with the thyroid. No interaction with her Geodon.) Departure - Departure Disposition: Home, Self Care Clinical Impression: Increased stomach acid Condition: Stable Record reviewed to determine appropriate education?: Yes Follow-Up: Claudia Garcia PA-C [Primary Care Provider] - Prescriptions: Pantoprazole Sodium 20 mg PO DAILY #30 tab Comments: I looked up the medication interactions for your medicines and the various antacids containing either magnesium or calcium (essentially all of them such as Tums, Mylanta, Maalox, Gaviscon) would interfere with the absorption and function of your thyroid medications. It would not interfere with the Geodon. As such I would suggest not using the antacids. If you wanted some acid reducing medications, other than the famotidine/H2 blockers and the antacids, there is the proton pump inhibitors such as pantoprazole and omeprazole. You could use these to help reduce stomach acids and do not have any interference with your medications. I would take them at night with your Geodon. Stay well-hydrated. [place] foods as tolerated. I would anticipate the mild diarrhea to continue tapering and be resolved within another day or 2. I sent a prescription for some pantoprazole to the [facility] pharmacy if you desired. Discharge Date/Time: 02/02/23 10:37
== END 2023-02-02 10:37 | disposition home or self-care (01) ==
LOC: ED 09:32
DX: R10.11 Right upper quadrant pain (principal); Z79.899 Other long term (current) drug therapy
CPT/HCPCS: 99282; 99283

== ENCOUNTER 2023-02-02 16:09 | Emergency (ER) | payer BC ==
--- NOTE | 2023-02-02 16:20 | ED Physician Documentation ---
History of Present Illness - Stated complaint Stated Complaint: LIGHT HEADED - Chief complaint Chief Complaint: Allergic Rx - History obtained from History obtained from: Patient - History of Present Illness Timing: Today, How many hours ago (1) Quality: The patient states she was at a store and while in it started to feel lightheaded with some tightness in her chest and felt short of breath. No itching or hives. She is concerned about having allergic reaction. She had not started any new medicines. No obvious chemical odors. Review of Systems Skin: denies: Rash Neurologic: denies: Focal weakness, Numbness, Near syncope (but having lightheaded feeling.) PD PAST MEDICAL HISTORY - Past Medical History Cardiovascular: None Respiratory: None Endocrine/Autoimmune: None GI: None : None HEENT: None Psych: None Musculoskeletal: None Derm: None - Past Surgical History Past Surgical History: No Ortho: Other - Present Medications Home Medications: Ambulatory Orders Medication Instructions Recorded Confirmed Levothyroxine [Synthroid] 25 mcg PO DAILY 04/09/21 04/09/21 Ziprasidone [Geodon] 20 mg PO DAILY PM 04/09/21 04/09/21 Pantoprazole Sodium 20 mg PO DAILY #30 tab 02/02/23 - Allergies Allergies/Adverse Reactions: Allergies Allergy/AdvReac Type Severity Reaction Status Date / Time aspirin Allergy Mild Rash Verified 02/02/23 16:18 acetaminophen [From Tylenol] Allergy Rash Verified 02/02/23 16:18 famotidine Allergy Edema Verified 02/02/23 16:18 - Social History Does the pt smoke?: No Smoking Status: Never smoker Does the pt drink ETOH?: No Does the pt have substance abuse?: No - Immunizations Immunizations are current?: No Immunizations: TDAP >10years/unknown PD ED PE NORMAL - Vitals Vital signs reviewed: Yes - General General: Alert and oriented X 3, No acute distress, Well developed/nourished - HEENT HEENT: Pharynx benign - Respiratory Respiratory: No respiratory distress, Clear bilaterally - Derm Derm: Normal color, Warm and dry, No rash Results - Vitals Vitals: Vital Signs - 24 hr 02/02/23 16:12 Temperature 36.9 C Heart Rate 70 Respiratory 16 Rate Blood Pressure 134/89 H O2 Saturation 100 Oxygen O2 Source [With Activity] Room air O2 Source [Without Activity] Room air O2 Source Room air PD Medical Decision Making - ED course Complexity details: considered differential (The patient was having a feeling of lightheadedness, dyspnea, shortness of breath. No wheezing hives or itching. She is concerned about allergic reaction. No obvious trigger.), d/w patient ED course: The patient does have a history of anxiety and also some potential affective disorder. She typically takes thyroid and Geodon. She is very nervous and cautious about changes in her food routines, medications, adding any new medicines etc. She appears well without any swelling, trouble breathing or swallowing, rash, itching. There may have been an environmental trigger that caused some symptoms such as a chemical smell or odor. However I think there is a reasonable psychological overlay with stress reaction. She appears well at this time without any distress and states she is feeling better. She is reluctant to take medications I would not want to give her antihistamines or such and it does not necessarily sound histamine mediated. We will discharge her with instructions to stay well-hydrated and return if needed. She does seem to have an anxiety component and that is likely the main overlay of her symptoms. Departure - Departure Disposition: 01 Home, Self Care Clinical Impression: Light-headed feeling Condition: Stable Record reviewed to determine appropriate education?: Yes Follow-Up: Claudia Garcia PA-C [Primary Care Provider] - Comments: Its not clear the cause of your symptoms. Without having started any new medications etc. its unlikely to be medication toxicity or side effect. There may have been an environmental trigger at the store that cause some lightheadedness. Could consider the idea of being under hydrated and lightheaded related to your recent gastritis. Be sure to take lots of fluids through the day. Continue usual medicines. You could start the pantoprazole prescribed earlier today to help reduce some of the stomach acids. You could go with bland food and acid absorbing foods such as crackers and such through the day instead if starting new medicine is worrisome to you. You look well at this time without any trouble breathing or signs of allergic reaction per se. I believe you are safe for discharge Discharge Date/Time: 02/02/23 16:51
[2023-02-02 16:21] VITALS: BP 134/89
== END 2023-02-02 16:51 | disposition home or self-care (01) ==
LOC: ED 16:09
DX: R42 Dizziness and giddiness (principal)

== ENCOUNTER 2023-02-02 21:47 | Emergency (ER) | payer BC ==
[2023-02-02 22:05] VITALS: BP 149/102
== END 2023-02-02 22:00 | disposition left against medical advice (07) ==
LOC: ED 21:47
DX: Z53.21 Procedure and treatment not carried out due to patient leaving prior to being seen by health care provider (principal)

== ENCOUNTER 2023-02-10 08:00 | Outpatient (CLI) | payer BC ==
[2023-02-10 18:41] LABS: BASOPHILS % (AUTO) 0.8 %; EOSINOPHILS % (AUTO) 0.3 %; HCT - HEMATOCRIT 35.9 % (37.0-47.0); HGB - HEMOGLOBIN 12.4 g/dL (12.0-16.0); LYMPHOCYTES # (AUTO) 1.2 10^3/uL (1.5-3.5); LYMPHOCYTES % (AUTO) 32.4 %; MEAN CORPUSCULAR HGB CONC 34.5 g/dL (32.0-36.0); MEAN CORPUSCULAR VOLUME 92.5 fL (81.0-99.0); MEAN PLATELET VOLUME 9.3 fL (7.9-10.8); MONOCYTES # (AUTO) 0.3 10^3/uL (0.0-1.0); MONOCYTES % (AUTO) 9.3 %; NEUTROPHILS # (AUTO) 2.1 10^3/uL (1.5-6.6); NEUTROPHILS % (AUTO) 56.9 %; PLT - PLATELET COUNT 235 10^3/uL (130-450); RED BLOOD COUNT 3.88 10^6/uL (4.20-5.40); RED CELL DISTRIBUTION WIDTH 12.3 % (12.0-15.0); WHITE BLOOD COUNT 3.6 x10^3/uL (4.8-10.8)
== END 2023-02-10 23:59 | disposition home or self-care (01) ==
LOC: LAB.N 08:00
PROVIDERS: ATTEND Family Medicine
DX: D64.9 Anemia, unspecified (principal)
CPT/HCPCS: 36415; 85025

== ENCOUNTER 2023-02-11 12:01 | Emergency (ER) | payer BC ==
[2023-02-11 12:18] VITALS: BP 134/79
--- NOTE | 2023-02-11 14:41 | ED Physician Documentation ---
History of Present Illness - Stated complaint Stated Complaint: ZARAGOZA - Chief complaint Chief Complaint: General - History obtained from History obtained from: Patient - History of Present Illness Timing: Today - Additonal information Additional information: 42-year-old Susan Patino has developed a headache beginning last night that was on the top of her head and throbbing this resolved and the patient felt that if this recurred she would go to the hospital. She had recurrence of the symptoms this morning developed some nausea her symptoms are now resolved. She does not typically get headaches. She has no other specific symptoms. She does not feel like she has been recently ill. Review of Systems Constitutional: denies: Fever Eyes: denies: Decreased vision Ears: denies: Loss of hearing, Ear pain Nose: denies: Rhinorrhea / runny nose, Reviewed and negative Throat: denies: Sore throat Cardiac: denies: Chest pain / pressure Respiratory: denies: Dyspnea, Cough GI: reports: Nausea. denies: Abdominal Pain, Vomiting, Constipation, Diarrhea : reports: Frequency. denies: Dysuria Skin: denies: Rash Musculoskeletal: denies: Neck pain, Back pain, Extremity pain PD PAST MEDICAL HISTORY - Past Medical History Cardiovascular: None Respiratory: None Endocrine/Autoimmune: None GI: None : None HEENT: None Psych: None Musculoskeletal: None Derm: None - Past Surgical History Past Surgical History: No Ortho: Other - Present Medications Home Medications: Ambulatory Orders Medication Instructions Recorded Confirmed Levothyroxine [Synthroid] 25 mcg PO DAILY 04/09/21 04/09/21 Ziprasidone [Geodon] 20 mg PO DAILY PM 04/09/21 04/09/21 Pantoprazole Sodium 20 mg PO DAILY #30 tab 02/02/23 - Allergies Allergies/Adverse Reactions: Allergies Allergy/AdvReac Type Severity Reaction Status Date / Time aspirin Allergy Mild Rash Verified 02/11/23 12:15 acetaminophen [From Tylenol] Allergy Rash Verified 02/11/23 12:15 famotidine Allergy Edema Verified 02/11/23 12:15 - Social History Does the pt smoke?: No Smoking Status: Never smoker Does the pt drink ETOH?: No Does the pt have substance abuse?: No - Immunizations Immunizations are current?: No Immunizations: TDAP >10years/unknown PD ED PE NORMAL - Vitals Vital signs reviewed: Yes (hypertensive) - General General: Alert and oriented X 3, No acute distress, Well developed/nourished - HEENT HEENT: Atraumatic, PERRL, EOMI - Neck Neck: Supple, no meningeal sign, No bony TTP - Cardiac Cardiac: RRR, No murmur - Respiratory Respiratory: No respiratory distress, Clear bilaterally - Abdomen Abdomen: Soft, Non tender - Back Back: No CVA TTP, No spinal TTP - Derm Derm: Normal color, Warm and dry, No rash - Extremities Extremities: No deformity, No edema - Neuro Neuro: Alert and oriented X 3, advance agent 2-12 intact, No motor deficit, No sensory de ficit, Normal speech Eye Opening: Spontaneous Motor: Obeys Commands Verbal: Oriented GCS Score: 15 - Psych Psych: Normal mood, Other (Affect is blunted) Results - Vitals Vitals: Vital Signs - 24 hr 02/11/23 12:10 Temperature 36.2 C L Heart Rate 66 Respiratory 16 Rate Blood Pressure 134/79 H O2 Saturation 100 Oxygen O2 Source [] Room air O2 Source [] Room air O2 Source Room air - Labs Labs: Laboratory Tests 02/11/23 15:00 Urine Color YELLOW Urine Clarity CLEAR Urine pH 6.5 Ur Specific [place] <=1.005 Urine Protein NEGATIVE Urine Glucose (UA) NEGATIVE Urine Ketones NEGATIVE Urine Occult Blood TRACE-INTA Urine Nitrite NEGATIVE Urine Bilirubin NEGATIVE Urine Urobilinogen 0.2 (NORMAL) Ur Leukocyte Esterase NEGATIVE Ur Microscopic Review NOT INDICATED Urine Culture Comments NOT INDICATED Urine HCG, Qual NEGATIVE Procedures - IVC sono (time) 1438 Bedside IVC sono: IVC measures (cm) (1.66), Euvolemia PD Medical Decision Making - ED course Complexity details: reviewed old records, reviewed results, re-evaluated patient, considered differential, d/w patient Reviewed Lab Results: We reviewed a urinalysis and test on this patient complaining of urinary frequency and found a urine specific gravity 1.005 otherwise negative and a negative urine test. My interpretation of this is no evidence of urinary tract infection and no evidence of dehydration. ED course: 42-year-old female with complaints of intermittent headache has no symptoms now I did evaluate the patient for dehydration with interrogation of the inferior vena cava with POCUS and found her to be normally hydrated. This was supported by laboratory values of her urine showing a low urine specific gravity Departure - Departure Disposition: 01 Home, Self Care Clinical Impression: Cephalalgia Qualifiers: Headache type: unspecified Headache chronicity pattern: episodic headache Intractability: not intractable Qualified Code(s): R51.9 - Headache, unspecified Condition: Stable Instructions: ED Cephalgia Unspecified Follow-Up: [facility] [Provider Group] Discharge Date/Time: 02/11/23 16:42
[2023-02-11 15:14] LABS: BILIRUBIN,URINE NEGATIVE (NEGATIVE); GLUCOSE, URINE (UA) NEGATIVE (NEGATIVE); KETONES,URINE (UA) NEGATIVE (NEGATIVE); LEUKOCYTE ESTERASE, URINE NEGATIVE (NEGATIVE); NITRITE,URINE NEGATIVE (NEGATIVE); OCCULT BLOOD,URINE TRACE-INTA (NEGATIVE); PH,URINE 6.5 PH (5.0-7.5); PROTEIN,URINE NEGATIVE (NEGATIVE); UROBILINOGEN,URINE 0.2 (NORMAL) E.U./dL (NORMAL)
[2023-02-11 15:20] LABS: CLARITY,URINE CLEAR (CLEAR); HCG UR QUAL NEGATIVE
== END 2023-02-11 16:42 | disposition home or self-care (01) ==
LOC: ED 12:01
DX: R51.9 Headache, unspecified (principal); D64.9 Anemia, unspecified
CPT/HCPCS: 36415; 81001; 81003; 81025; 85025; 87086; 99283

== ENCOUNTER 2023-02-22 14:00 | Emergency (ER) | payer BC ==
[2023-02-22 14:14] VITALS: BP 113/76
[2023-02-22 14:39] LABS: BASOPHILS % (AUTO) 1.1 %; EOSINOPHILS % (AUTO) 0.3 %; HCT - HEMATOCRIT 38.1 % (37.0-47.0); HGB - HEMOGLOBIN 12.9 g/dL (12.0-16.0); LYMPHOCYTES # (AUTO) 1.3 10^3/uL (1.5-3.5); LYMPHOCYTES % (AUTO) 33.8 %; MEAN CORPUSCULAR HEMOGLOBIN 31.8 pg (27.0-31.0); MEAN CORPUSCULAR HGB CONC 33.9 g/dL (32.0-36.0); MEAN CORPUSCULAR VOLUME 93.8 fL (81.0-99.0); MEAN PLATELET VOLUME 8.8 fL (7.9-10.8); MONOCYTES # (AUTO) 0.2 10^3/uL (0.0-1.0); MONOCYTES % (AUTO) 6.4 %; NEUTROPHILS # (AUTO) 2.2 10^3/uL (1.5-6.6); NEUTROPHILS % (AUTO) 58.1 %; PLT - PLATELET COUNT 223 10^3/uL (130-450); RED BLOOD COUNT 4.06 10^6/uL (4.20-5.40); RED CELL DISTRIBUTION WIDTH 12.1 % (12.0-15.0); WHITE BLOOD COUNT 3.8 x10^3/uL (4.8-10.8)
[2023-02-22 14:54] LABS: ALBUMIN 4.4 g/dL (3.2-5.5); ALBUMIN/GLOBULIN RATIO 1.7 (1.0-2.2); BILIRUBIN,TOTAL 0.5 mg/dL (0.2-1.0); CALCIUM 9.4 mg/dL (8.5-10.3); CREATININE 0.5 mg/dL (0.4-1.0); POTASSIUM 3.6 mmol/L (3.5-5.0)
[2023-02-22] MEDS ORDERED: ONDANSETRON ODT 4 MG TABLET TL STA (14:57)
--- NOTE | 2023-02-22 15:01 | ED Physician Documentation ---
History of Present Illness - Stated complaint Stated Complaint: DIZZY/FEELING UNWELL - Chief complaint Chief Complaint: General - Additonal information Additional information: 42-year-old female presents emergency department stating that she wants testing for "what ever she is coming down with." States this morning she was dizzy and nauseated. Drink some water and did not feel better. She feels lightheaded. She has had diarrhea. Denies abdominal pain chest pain fevers or cough. She does appear exceedingly anxious. This is her third ED visit over the last several weeks for headache fatigue and dizziness. She does have a known thyroid disorder with recent normal TSH Review of Systems Constitutional: denies: Fever, Chills Eyes: reports: Reviewed and negative Throat: reports: Reviewed and negative Cardiac: reports: Reviewed and negative Respiratory: reports: Reviewed and negative GI: reports: Abdominal Pain, Nausea, Diarrhea : reports: Reviewed and negative Skin: reports: Reviewed and negative PD PAST MEDICAL HISTORY - Past Medical History Cardiovascular: None Respiratory: None Endocrine/Autoimmune: None GI: None : None HEENT: None Psych: None Musculoskeletal: None Derm: None - Past Surgical History Past Surgical History: No Ortho: Other - Present Medications Home Medications: Ambulatory Orders Medication Instructions Recorded Confirmed Levothyroxine [Synthroid] 25 mcg PO DAILY 04/09/21 04/09/21 Ziprasidone [Geodon] 20 mg PO DAILY PM 04/09/21 04/09/21 Pantoprazole Sodium 20 mg PO DAILY #30 tab 02/02/23 Ondansetron Odt [Zofran] 4 mg TL Q6H PRN #10 tablet 02/22/23 - Allergies Allergies/Adverse Reactions: Allergies Allergy/AdvReac Type Severity Reaction Status Date / Time aspirin Allergy Mild Rash Verified 02/22/23 14:02 acetaminophen [From Tylenol] Allergy Rash Verified 02/22/23 14:02 famotidine Allergy Edema Verified 02/22/23 14:02 - Social History Does the pt smoke?: No Smoking Status: Never smoker Does the pt drink ETOH?: No Does the pt have substance abuse?: No - Immunizations Immunizations are current?: No Immunizations: TDAP >10years/unknown PD ED PE NORMAL - General General: Alert and oriented X 3, No acute distress, Well developed/nourished - HEENT HEENT: Atraumatic, Moist mucous membranes, Pharynx benign - Neck Neck: Supple, no meningeal sign - Cardiac Cardiac: RRR, No murmur, No gallop - Respiratory Respiratory: No respiratory distress, Clear bilaterally - Abdomen Abdomen: Normal bowel sounds, Soft, Non tender, Non distended - Back Back: No CVA TTP - Derm Derm: Normal color, Warm and dry, No rash - Extremities Extremities: No deformity - Neuro Neuro: Alert and oriented X 3, biophysics professor 2-12 intact Eye Opening: Spontaneous Motor: Obeys Commands Verbal: Oriented GCS Score: 15 Results - Vitals Vitals: Vital Signs - 24 hr 02/22/23 14:02 Temperature 36.5 C Heart Rate 78 Respiratory 14 Rate Blood Pressure 113/76 O2 Saturation 100 Oxygen O2 Source [With Activity] Room air O2 Source [Without Activity] Room air O2 Source Room air - Labs Labs: Laboratory Tests 02/22/23 02/22/23 02/22/23 14:35 14:35 15:10 WBC 3.8 L RBC 4.06 L Hgb 12.9 Hct 38.1 MCV 93.8 MCH 31.8 H MCHC 33.9 RDW 12.1 Plt Count 223 MPV 8.8 Neut # (Auto) 2.2 Lymph # (Auto) 1.3 L [place] # (Auto) 0.2 Eos # (Auto) 0.0 Baso # (Auto) 0.0 Absolute Nucleated RBC 0.00 Nucleated RBC % 0.0 Sodium 135 Potassium 3.6 Chloride 101 Carbon Dioxide 27 Anion Gap 7.0 BUN 6 Creatinine 0.5 Estimated GFR (MDRD) 136 Glucose 121 H Calcium 9.4 Total Bilirubin 0.5 AST 22 ALT 17 Alkaline Phosphatase 35 L Total Protein 7.0 Albumin 4.4 Globulin 2.6 Albumin/Globulin Ratio 1.7 Lipase 46 Urine Color YELLOW Urine Clarity CLEAR Urine pH 6.5 Ur Specific [place] <=1.005 Urine Protein NEGATIVE Urine Glucose (UA) NEGATIVE Urine Ketones NEGATIVE Urine Occult Blood TRACE-INTA Urine Nitrite NEGATIVE Urine Bilirubin NEGATIVE Urine Urobilinogen 0.2 (NORMAL) Ur Leukocyte Esterase NEGATIVE Ur Microscopic Review NOT INDICATED Urine Culture Comments NOT INDICATED Urine HCG, Qual NEGATIVE Nasal Adenovirus (PCR) Nasal B. parapertussis DNA (PCR) Nasal Coronavir 229E PCR Nasal Coronavir HKU1 PCR Nasal Coronavir NL63 PCR Nasal Coronavir OC43 PCR Nasal Enterovir/Rhinovir PCR Nasal Influenza B PCR Nasal Influenza A PCR Nasal Parainfluen 1 PCR Nasal Parainfluen 2 PCR Nasal Parainfluen 3 PCR Nasal Parainfluen 4 PCR Nasal RSV (PCR) Nasal B.pertussis DNA PCR Nasal C.pneumoniae (PCR) Anupam Human Metapneumo PCR Nasal M.pneumoniae (PCR) Nasal SARS-CoV-2 (PCR) 02/22/23 15:10 WBC RBC Hgb Hct MCV MCH MCHC RDW Plt Count MPV Neut # (Auto) Lymph # (Auto) [place] # (Auto) Eos # (Auto) Baso # (Auto) Absolute Nucleated RBC Nucleated RBC % Sodium Potassium Chloride Carbon Dioxide Anion Gap BUN Creatinine Estimated GFR (MDRD) Glucose Calcium Total Bilirubin AST ALT Alkaline Phosphatase Total Protein Albumin Globulin Albumin/Globulin Ratio Lipase Urine Color Urine Clarity Urine pH Ur Specific [place] Urine Protein Urine Glucose (UA) Urine Ketones Urine Occult Blood Urine Nitrite Urine Bilirubin Urine Urobilinogen Ur Leukocyte Esterase Ur Microscopic Review Urine Culture Comments Urine HCG, Qual Nasal Adenovirus (PCR) NOT DETECTED Nasal B. parapertussis DNA (PCR) NOT DETECTED Nasal Coronavir 229E PCR NOT DETECTED Nasal Coronavir HKU1 PCR NOT DETECTED Nasal Coronavir NL63 PCR NOT DETECTED Nasal Coronavir OC43 PCR NOT DETECTED Nasal Enterovir/Rhinovir PCR NOT DETECTED Nasal Influenza B PCR NOT DETECTED Nasal Influenza A PCR NOT DETECTED Nasal Parainfluen 1 PCR NOT DETECTED Nasal Parainfluen 2 PCR NOT DETECTED Nasal Parainfluen 3 PCR NOT DETECTED Nasal Parainfluen 4 PCR NOT DETECTED Nasal RSV (PCR) NOT DETECTED Nasal B.pertussis DNA PCR NOT DETECTED Nasal C.pneumoniae (PCR) NOT DETECTED Anupam Human Metapneumo PCR NOT DETECTED Nasal M.pneumoniae (PCR) NOT DETECTED Nasal SARS-CoV-2 (PCR) NOT DETECTED PD Medical Decision Making - ED course Complexity details: reviewed results, re-evaluated patient, d/w patient ED course: 42-year-old female presents emergency department for evaluation of nausea and dizziness that began this morning. She did have some diarrhea. Reported to me that she wanted to be checked out she thought she might have the flu. She has a very anxious affect. Here in the emergency department she has unremarkable vital signs no fevers, tachycardia or hypotension. I did obtain CBC and electrolytes. Per my interpretation there is a mildly decreased white blood cell count at 3.8 thousand. This may be seen in the setting of viral illnesses. Respiratory PCR is pending. Patient's cardiopulmonary auscultation and neurological exam were otherwise unremarkable. She was given a single dose of Zofran orally here in the ER which improved the nausea. As such she is stable for discharge home. I do suspect a viral illness. I will follow-up the PCR results with the patient later this evening via phone. Given the otherwise unremarkable exam I do not feel advanced imaging is necessary at this point. The usual emergent return precautions were discussed 164: Respiratory PCR has resulted negative. I attempted to call the patient to notify her of the results but the phone went to a message stating no calls were being excepted at this time. The patient had told me that she was unable to follow-up results online and requested a phone call. Departure - Departure Disposition: Home, Self Care Clinical Impression: Nausea, Dizzy Condition: Stable Record reviewed to determine appropriate education?: Yes Prescriptions: Ondansetron Odt [Zofran] 4 mg TL Q6H PRN #10 tablet PRN Reason: Nausea / Vomiting Comments: You came to the emergency department because you have been nauseated and having dizzy spells. You think that you may be coming down with the flu. We do have a viral panel test pending on you. I will call you later this evening if there are any positive results. In the short-term I encourage you to use the Zofran for nausea. Have frequent sips of clear liquids, broth or Gatorade. I would expect your symptoms to be getting better over the next several days. Return to the ER for any fevers, uncontrolled vomiting or fainting episodes Discharge Date/Time: 02/22/23 15:31
[2023-02-22 15:15] LABS: BILIRUBIN,URINE NEGATIVE (NEGATIVE); GLUCOSE, URINE (UA) NEGATIVE (NEGATIVE); KETONES,URINE (UA) NEGATIVE (NEGATIVE); LEUKOCYTE ESTERASE, URINE NEGATIVE (NEGATIVE); NITRITE,URINE NEGATIVE (NEGATIVE); OCCULT BLOOD,URINE TRACE-INTA (NEGATIVE); PH,URINE 6.5 PH (5.0-7.5); PROTEIN,URINE NEGATIVE (NEGATIVE); UROBILINOGEN,URINE 0.2 (NORMAL) E.U./dL (NORMAL)
[2023-02-22 15:18] LABS: CLARITY,URINE CLEAR (CLEAR); HCG UR QUAL NEGATIVE
[2023-02-22 16:12] LABS: B. PARAPERTUSSIS- RESP PCR PAN NOT DETECTED; B. PERTUSSIS- RESP PCR PANEL NOT DETECTED; C. PNEUMONIAE- RESP PCR PANEL NOT DETECTED; CORONAVIRUS 229E-RESP PCR NOT DETECTED; CORONAVIRUS HKU1-RESP PCR NOT DETECTED; CORONAVIRUS NL63-RESP PCR NOT DETECTED; CORONAVIRUS OC43-RESP PCR NOT DETECTED; HUMAN METAPNEUMOVIRUS NOT DETECTED; INFLUENZA A- RESP PCR PANEL NOT DETECTED; INFLUENZA B - RESP PCR PANEL NOT DETECTED; M. PNEUMONIAE- RESP PCR PANEL NOT DETECTED; PARAINFLUENZA VIRUS 1 NOT DETECTED; PARAINFLUENZA VIRUS 2 NOT DETECTED; PARAINFLUENZA VIRUS 3 NOT DETECTED; PARAINFLUENZA VIRUS 4 NOT DETECTED; RHINOVIRUS/ENTEROVIRUS NOT DETECTED; RSV- RESP PCR PANEL NOT DETECTED; SARS-CoV-2 -RESP PCR PANEL NOT DETECTED
== END 2023-02-22 15:31 | disposition home or self-care (01) ==
LOC: ED 14:00
DX: R11.0 Nausea (principal); R42 Dizziness and giddiness; Z20.822 Contact with and (suspected) exposure to COVID-19
CPT/HCPCS: 36415; 80053; 81003; 81025; 83690; 85025; 87633; 99283; 99284; Q0162; 81001; 87086

== ENCOUNTER 2023-03-16 12:39 | Day surgery (SDC) | payer BC ==
--- NOTE | 2023-03-16 13:40 | ANESTHESIA ---
Pre-Anesthesia VS, & Labs - Diagnosis GERD, epigastric pain - Procedure EGD Vital Signs: Temp Pulse Resp BP Pulse Ox O2 Flow Rate 36.8 C 58 L 25 H 114/75 100 03/16/23 13:13 03/16/23 13:13 03/16/23 13:13 03/16/23 13:13 03/16/23 13:13 Height: 5 ft Weight (kg): 38 kg Body Mass Index: 16.3 BMI Classification: Underweight - NPO Other (H2O at 10am) - Is Patient ?: Waiver signed Home Medications and Allergies Levothyroxine [Synthroid] 25 mcg PO DAILY 04/09/21 Ziprasidone [Geodon] 20 mg PO DAILY PM 04/09/21 Allergies/Adverse Reactions: Allergies Allergy/AdvReac Type Severity Reaction Status Date / Time aspirin Allergy Mild Rash Verified 02/22/23 14:02 acetaminophen [From Tylenol] Allergy Rash Verified 02/22/23 14:02 famotidine Allergy Edema Verified 02/22/23 14:02 omeprazole AdvReac Headache Verified 03/16/23 13:05 Anes History & Medical History - Anesthetic History Anesthesia Complications: reports: No previous complications Family history of Anesthesia Complications: Denies Family history of Malignant Hyperthermia: Denies - Medical History Cardiovascular: reports: None Pulmonary: reports: None Gastrointestinal: reports: GERD Urinary: reports: None Musculoskeletal: reports: None Endocrine/Autoimmune: reports: None Skin: reports: None Smoking Status: Never smoker Psychosocial: reports: Depression, Anxiety, Psychoactive Drug, Other (paranoia) History of Cancer?: No - Surgical History General: reports: Other Neurologic: reports: Other Orthopedic: reports: Knee replacement, Other Exam General: Alert, Oriented x3, Cooperative Dental: WNL Mouth Openin Fingerbreadth Neck Mobility: Normal Mallampati classification: II Thyromental Distance: 4-6 cm Respiratory: Lungs clear Cardiovascular: Regular rate Plan Anesthesia Type: Total IV Consent for Procedure(s) Verified and Reviewed: Yes Code Status: Attempt Resuscitation ASA classification: 2-Mild systemic disease Is this case an emergency?: No
[2023-03-16] MEDS ORDERED: LACTATED RINGERS 1,000 ML IV ONE ×2 (13:46→15:04)
[2023-03-16] MEDS ORDERED: MIDAZOLAM 2 MG/2 ML VIAL ONE (14:47)
[2023-03-16 15:44] VITALS: BP 123/68
== END 2023-03-16 12:40 | disposition home or self-care (01) ==
LOC: SDS 12:39
PROVIDERS: ATTEND Surgery
PROC: 0DB68ZX Excision of Stomach, Via Natural or Artificial Opening Endoscopic, Diagnostic (ICD-10-PCS; 2023-03-16)
PROC: 0DB58ZX Excision of Esophagus, Via Natural or Artificial Opening Endoscopic, Diagnostic (ICD-10-PCS; 2023-03-16)
PROC: 0DB98ZX Excision of Duodenum, Via Natural or Artificial Opening Endoscopic, Diagnostic (ICD-10-PCS; principal; 2023-03-16 14:15)
DX: K21.9 Gastro-esophageal reflux disease without esophagitis (principal); R10.13 Epigastric pain; D50.9 Iron deficiency anemia, unspecified; K29.50 Unspecified chronic gastritis without bleeding; R63.0 Anorexia; Z68.1 Body mass index [BMI] 19.9 or less, adult; R63.6 Underweight; F41.9 Anxiety disorder, unspecified
CPT/HCPCS: 43239; J7120

== ENCOUNTER 2023-08-25 15:38 | Outpatient (CLI) | payer BC ==
[2023-08-25 19:23] LABS: CHOL/HDL RATIO 2.3 (<4.4); CHOLESTEROL 190 mg/dL; HDL CHOLESTEROL 83 mg/dL; LDL CHOLESTEROL,CALCULATED 91 mg/dL; LDL/HDL RATIO 1.1 (<4.4); TRIGLYCERIDES 78 mg/dL (48-352); VLDL CHOLESTEROL 16 mg/dL
[2023-08-25 22:32] LABS: ESTIMATED AVERAGE GLUCOSE 97 mg/dL (70-100)
== END 2023-08-25 15:39 | disposition home or self-care (01) ==
LOC: LAB.N 15:38
PROVIDERS: ATTEND Nurse Practitioner Psychiatric/Mental Health
DX: F43.10 Post-traumatic stress disorder, unspecified (principal); F34.1 Dysthymic disorder
CPT/HCPCS: 36415; 80061; 83036; 83721

== ENCOUNTER 2023-10-15 14:13 | Outpatient (CLI) | payer BC ==
--- NOTE | 2023-10-17 09:20 | Mammography Report ---
BILATERAL DIGITAL SCREENING MAMMOGRAM 3D/2D: 10/15/2023 CLINICAL: Baseline exam. Routine screening. No prior exams were available for comparison. Both breasts are extremely dense, which lowers the sensitivity of mammography (category d />75% gland ular tissue). No significant masses, calcifications, or other findings are seen in either breast. IMPRESSION: NEGATIVE There is no mammographic evidence of malignancy. A 1 year screening mammogram is recommended. Based on Tyrer-Cuzick model (a risk assessment model), the patient's lifetime risk is 20.7% and her 1 0 year risk is 3.2%. If a patient has an elevated risk, a more comprehensive evaluation should be con sidered and/or a referral to a genetic counselor. The [place] [employer], [employer], and NCCN Guidelines advise the consideration of Breast MRI as an adjunct to screening mammog scott in patients whose "Lifetime risk to develop breast cancer" is 20% or higher. This exam was interpreted at Station ID: [id number]. NOTE: For mammograms, a report in lay terms will be sent to the patient. Approximately 15% of breast malignancies will not be visualized mammographically. In the management of a palpable breast mass, a negative mammogram must not discourage biopsy of a clinically suspicious lesion. Electronically Signed By: Salud lopes/ivana:10/16/2023 16:30:31 letter sent: No_Letter ACR BI-RADS Category 1: Negative 3341F PARENCHYMAL PATTERN: (VD) - The breast(s) demonstrate(s) extremely dense parenchyma, limiting the sen sitivity of mammography. BI-RADS CATEGORY: (1) - 1 Mammogram [id number] 1 year screening LATERALITY: (B)
== END 2023-10-15 14:14 | disposition home or self-care (01) ==
LOC: DI.N 14:13
DX: Z12.31 Encounter for screening mammogram for malignant neoplasm of breast (principal); R92.30 Dense breasts, unspecified